=== PATIENT | female | born 1965 | race Caucasian/White ===

== ENCOUNTER 2017-02-18 09:21 | Emergency (ER) | payer BC, OTHER ==
[2017-02-18] MEDS ORDERED: Ketorolac INJ* 60 MG/2 ML VIAL IM ONE (10:46)
--- NOTE | 2017-02-18 10:59 | UC ---
Mis Casillas [place], scribed for Fernanda Mahajan MD on 02/18/17 at 1024 . Neck Pain HPI - HPI Summary HPI Summary: Patient is a 51 y/o F who presents to the with 10/10 pain in the back of her neck (behind ears, worse on right side) since early yesterday (progressively worse throughout the day). She reports tenderness to touch and a feeling of swelling in her throat when swallowing, but denies fever, tingling or numbness down arms, a headache, balance loss, sore throat, or change in ambulation. She states that she has a hx of allergies, but not recently. She reports taking Ibuprofen at 0330 today and one earlier. Pt states that she had bronchitis in December 2015. She denies a hx of stiff necks, but states she drove 5-6 hours the day before. Patients medication reviewed this visit. - History of Current Complaint Chief Complaint: UCGeneralIllness Stated Complaint: NECK PAIN Time Seen by Provider: 02/18/17 10:04 Hx Obtained From: Patient Onset/Duration Of Injury/Symptoms: Days Mechanism Of Injury: No Known Trauma Timing: Constant Onset/Duration: Gradual Onset, Lasting Days, Still Present Severity: Moderate Pain Intensity: 10 Pain Scale Used: 0-10 Numeric Location: Diffuse - Back of neck, worse on right side behind ear. Aggravating Factors: Position, Movement Alleviating Factors: OTC Meds Associated Signs & Symptoms: Positive: Swelling - when swallowing.. Negative: Headache - Allergies/Home Medications Allergies/Adverse Reactions: Allergies Allergy/AdvReac Type Severity Reaction Status Date / Time ELASTIC Allergy See Comment Uncoded 02/18/17 09:27 Home Medications: Home Medications Ibuprofen TAB* [Advil TAB*] 3 tab PO PRN 02/18/17 [History] PMH/Surg Hx/FS Hx/Imm Hx - Additional Past Medical History Additional PMH: overweight Previously Healthy: Yes - Surgical History Surgical History: Yes Surgery Procedure, Year, and Place: Hysterectomy, High Cholesterol - Family History Known Family History: Positive: Hypertension, Other - Gastroparesis - mother. 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 Alcohol Use: Rare Substance Use Type: None Smoking Status (MU): Never Smoked Tobacco Review Of Systems Constitutional: Positive: Negative. Negative: Fever ENT: Positive: Other - Feeling of swelling in her throat when swallowing. No sore throat. Musculoskeletal: Positive: Other: - Neck pain (behind ears, worse on right side) : tenderness to touch. Neurological: Positive: Negative - No tingling or numbness down arms, a headache , balance loss, or change in ambulation. All Other Systems Reviewed And Are Negative: Yes Physical Exam Triage Information Reviewed: Yes Appearance: Well-Appearing, Pain Distress - moderate., Obese Vital Signs: Initial Vital Signs Temp 98.0 F 02/18/17 09:25 Pulse 78 02/18/17 09:25 Resp 16 02/18/17 09:25 BP 140/72 02/18/17 09:25 Pulse Ox 100 02/18/17 09:25 Elevated BP noted. Vital Signs Reviewed: Yes Eyes: Positive: Conjunctiva Clear ENT: Positive: Pharynx normal - normal soft palate excursion, normal tonsils, normal posterior pharynx. Neck: Positive: No Lymphadenopathy - no palpable nodes in posterior cervical or occipital chains, Tenderness @ - right paraspinal muscles and insertion at occipute., Other: - cervical flexion to 10 degrees, rotation to right to 10 degrees, to left to 20 degrees, lateral bending markedly restricted. Palpable spasm in paraspinals Respiratory: Positive: Lungs clear, Normal breath sounds Cardiovascular: Positive: RRR, No Murmur Neurological Exam: Normal Neurological: Positive: Alert, Muscle Tone Normal - no pronator drift. Normal muscle tone in arms. Neck Pain Course/Dx - Course Course Of Treatment: nsaid's and muscle relaxants, referral to PT - Differential Dx/Diagnosis Provider Diagnoses: severe cervical muscle spasm Discharge - Discharge Plan Condition: Stable Disposition: HOME Prescriptions: Cyclobenzaprine TAB* [Flexeril 10 MG TAB*] 10 mg PO TID PRN #30 tab PRN Reason: Spasms - Neck Naproxen 500 mg PO BID PRN #30 tab PRN Reason: Pain Patient Education Materials: Spasmodic Torticollis (ED) Forms: *Work Release Referrals: Nahun Kulkarni MD [Primary Care Provider] - Additional Instructions: Your blood pressure was elevated today (140/72). Please, follow up with your primary care provider within the next few weeks. You were given a toradol injection today for control of pain. Once your are home, you can begin use of muscle relaxant. This will be sedating , and you should not drivie while taking it. After a day or so, it might be most helpful to use it only at night. Use naproxen as an anti-inflammatory, stopping if you begin to develop stomach upset with it. You have a referral for physical therapy should the neck spasm not relieve in several days. The documentation as recorded by the Mis jennings Salem accurately reflects the service I personally performed and the decisions made by me, Fernanda Mahajan MD.
[2017-02-18 11:27] VITALS: BP 140/85
== END 2017-02-18 11:27 | disposition home or self-care (01) ==
LOC: UCEAST 09:21
DX: M62.838 Other muscle spasm (principal); Z79.1 Long term (current) use of non-steroidal anti-inflammatories (NSAID)
CPT/HCPCS: 96372; 99212; G0463; J1885

== ENCOUNTER 2017-02-20 17:43 | Emergency (ER) | payer OTHER ==
[2017-02-20 17:47] VITALS: BP 143/81
[2017-02-20] MEDS ORDERED: HYDROcodone/ACETAMIN 5-325 MG* 1 TAB PO ONE (18:19)
--- NOTE | 2017-03-05 19:57 | UC ---
Neck Pain HPI - HPI Summary HPI Summary: Seen a couple days ago and dx with neck spasms---rx with flexeril and NSAID--- was getting better now getting worse again - History of Current Complaint Chief Complaint: UCUpperExtremity Stated Complaint: NECK PAIN AND SPASMS Time Seen by Provider: 02/20/17 18:07 Hx Obtained From: Patient ?: No Onset/Duration Of Injury/Symptoms: Days Mechanism Of Injury: No Known Trauma Timing: Constant Onset/Duration: Gradual Onset Severity: Moderate Pain Intensity: 8 Pain Scale Used: 0-10 Numeric Location: Discrete At: Character: Aching, Stiff, Spasmotic Aggravating Factors: Nothing Alleviating Factors: Other: - RX meds Associated Signs & Symptoms: Positive: Negative - Allergies/Home Medications Allergies/Adverse Reactions: Allergies Allergy/AdvReac Type Severity Reaction Status Date / Time ELASTIC Allergy See Comment Uncoded 02/20/17 17:59 PMH/Surg Hx/FS Hx/Imm Hx Previously Healthy: No Endocrine History: Dyslipidemia - Surgical History Surgical History: Yes Surgery Procedure, Year, and Place: Hysterectomy, High Cholesterol - Family History Known Family History: Positive: Hypertension, Other - Gastroparesis - mother. Negative: Cardiac Disease, Diabetes - Social History Occupation: Employed Full-time Lives: With Family Alcohol Use: Rare Substance Use Type: None Smoking Status (MU): Never Smoked Tobacco Review Of Systems Constitutional: Positive: Negative Skin: Positive: Negative Eyes: Positive: Negative ENT: Positive: Negative Respiratory: Positive: Negative Cardiovascular: Positive: Negative Gastrointestinal: Positive: Negative Genitourinary: Positive: Negative Musculoskeletal: Positive: Myalgia Neurological: Positive: Negative Psychological: Positive: Negative All Other Systems Reviewed And Are Negative: Yes Physical Exam Triage Information Reviewed: Yes Appearance: Well-Appearing, Well-Nourished, Pain Distress Vital Signs: Initial Vital Signs Temp 98.3 F 02/20/17 17:44 Pulse 97 02/20/17 17:44 Resp 18 02/20/17 17:44 BP 143/81 02/20/17 17:44 Pulse Ox 99 02/20/17 17:44 Vital Signs Reviewed: Yes Eye Exam: Normal Eyes: Positive: Conjunctiva Clear ENT Exam: Normal ENT: Positive: Normal ENT inspection, Hearing grossly normal, Pharynx normal, TMs normal. Negative: Nasal congestion, Nasal drainage, Tonsillar swelling, Tonsillar exudate, Trismus, Muffled/hoarse voice Dental Exam: Normal Neck exam: Normal Neck: Positive: Supple, Tenderness @ - muscle spasms. Negative: Nuchal Rigidity , Enlarged Nodes @ Respiratory Exam: Normal Respiratory: Positive: Chest non-tender, Lungs clear, Normal breath sounds, No respiratory distress, No accessory muscle use Cardiovascular Exam: Normal Cardiovascular: Positive: RRR, No Murmur, Pulses Normal, Brisk Capillary Refill Musculoskeletal Exam: Normal Musculoskeletal: Positive: Strength Intact, ROM Intact, No Edema Neurological Exam: Normal Neurological: Positive: Alert, Muscle Tone Normal Psychological Exam: Normal Skin Exam: Normal Neck Pain Course/Dx - Course Course Of Treatment: continue 1 Nsaid d/c the other (pts choice) continue flexeril and hydrocodone follow with pcp, add work limits - Differential Dx/Diagnosis Differential Dx/HQI/PQRI: Arthritis, Sprain, Strain, Trauma Provider Diagnoses: Cervical Muscle strain, High BP without dx of hypertension Discharge - Discharge Plan Condition: Stable Disposition: HOME Prescriptions: HYDROcodone/ACETAMIN 5-325 MG* [[place] 5-325 TAB*] 1 tab PO Q6H PRN #15 tab MDD 4 PRN Reason: pain Patient Education Materials: Cervical Strain (ED), Spasmodic Torticollis (ED) Forms: *Work Release Referrals: Nahun Kulkarni MD [Primary Care Provider] - 3 Days
== END 2017-02-20 18:36 | disposition home or self-care (01) ==
LOC: UCEAST 17:43
DX: S16.1XXA Strain of muscle, fascia and tendon at neck level, initial encounter (principal); X58.XXXA Exposure to other specified factors, initial encounter; Y93.9 Activity, unspecified; Y92.9 Unspecified place or not applicable; R03.0 Elevated blood-pressure reading, without diagnosis of hypertension; E78.5 Hyperlipidemia, unspecified
CPT/HCPCS: 99212; G0463

== ENCOUNTER 2017-03-13 11:09 | Emergency (ER) | payer OTHER ==
[2017-03-13 11:28] VITALS: BP 127/84
--- NOTE | 2017-03-13 12:26 | UC ---
Throat Pain/Nasal Yevgeniy HPI - History of Current Complaint Hx Obtained From: Patient ?: No Onset/Duration: Gradual Onset - started yesterday am with ST Severity: Worse Since: - today Associated Signs & Symptoms: Positive: Fever - feels feverish <Caroline Farfan - Last Filed: 03/13/17 12:52> <Elena Torres - Last Filed: 03/13/17 13:11> - History of Current Complaint Chief Complaint: UCRespiratory Stated Complaint: SORE THROAT Time Seen by Provider: 03/13/17 12:03 - Allergies/Home Medications Allergies/Adverse Reactions: Allergies Allergy/AdvReac Type Severity Reaction Status Date / Time ELASTIC Allergy See Comment Uncoded 02/20/17 17:59 Home Medications: Home Medications Ibuprofen TAB* 1 tab PO TID PRN 03/13/17 [History Confirmed 03/13/17] Miralax* 1 pow PO DAILY 03/13/17 [History Confirmed 03/13/17] Prozac CAP* 1 tab PO DAILY 03/13/17 [History Confirmed 03/13/17] PMH/Surg Hx/FS Hx/Imm Hx Previously Healthy: Yes Psychological History: Anxiety, Depression - Surgical History Surgical History: Yes Surgery Procedure, Year, and Place: Hysterectomy, High Cholesterol. ANXIETY - Family History Known Family History: Positive: Hypertension, Other - Gastroparesis - mother. Negative: Cardiac Disease, Diabetes - Social History Occupation: Employed Part-time Lives: With Family Alcohol Use: Rare Substance Use Type: None Smoking Status (MU): Never Smoked Tobacco <Caroline Farfan - Last Filed: 03/13/17 12:52> Review of Systems Constitutional: Fever, Fatigue ENT: Sore Throat All Other Systems Reviewed And Are Negative: Yes <Caroline Farfan - Last Filed: 03/13/17 12:52> Physical Exam Triage Information Reviewed: Yes Appearance: Well-Appearing, No Pain Distress, Well-Nourished Vital Signs: Initial Vital Signs Temp 97.7 F 03/13/17 11:21 Pulse 101 03/13/17 11:21 Resp 16 03/13/17 11:21 BP 127/84 03/13/17 11:21 Pulse Ox 98 03/13/17 11:21 Vital Signs Reviewed: Yes ENT: Positive: Pharyngeal erythema, TMs normal, Tonsillar exudate - L side Neck: Positive: No Lymphadenopathy Respiratory Exam: Normal Cardiovascular Exam: Normal Psychological Exam: Normal Skin Exam: Normal Skin: Negative: rashes <Caroline Farfan - Last Filed: 03/13/17 12:52> Vital Signs: Initial Vital Signs Temp 97.7 F 03/13/17 11:21 Pulse 101 03/13/17 11:21 Resp 16 03/13/17 11:21 BP 127/84 03/13/17 11:21 Pulse Ox 98 03/13/17 11:21 <Elena Torres - Last Filed: 03/13/17 13:11> Throat Pain/Nasal Course/Dx - Differential Dx/Diagnosis Differential Diagnosis/HQI/PQRI: Sinusitis, Tonsillitis, URI Provider Diagnoses: sore throat-strep neg <Caroline Farfan - Last Filed: 03/13/17 12:52> Discharge <Caroline Farfan - Last Filed: 03/13/17 12:52> <Elena Torres - Last Filed: 03/13/17 13:11> - Discharge Plan Condition: Stable Disposition: HOME Patient Education Materials: Tonsillitis (ED) Referrals: Nahun Kulkarni MD [Primary Care Provider] - 2 Days (if no better) Additional Instructions: drink plenty of fluids use ibuprofen for pain and fever Attestation Statement User Type: Provider - I was available for consult. This patient was seen by the SAUL. The patient was not presented to, seen by, or examined by me. -Leatha <Elena Torres - Last Filed: 03/13/17 13:11>
== END 2017-03-13 13:06 | disposition home or self-care (01) ==
LOC: UCEAST 11:09
DX: J02.9 Acute pharyngitis, unspecified (principal); R50.9 Fever, unspecified; F41.9 Anxiety disorder, unspecified; F32.9 Major depressive disorder, single episode, unspecified; Z90.710 Acquired absence of both cervix and uterus
CPT/HCPCS: 87651; 99211; G0463

== ENCOUNTER 2019-08-28 14:05 | Emergency (ER) | payer BC, OTHER ==
[2019-08-28 14:33] VITALS: BP 139/98
--- NOTE | 2019-08-28 14:56 | UC ---
Abdominal Pain Female HPI - HPI Summary HPI Summary: Patient is a 53yo female presenting with LLQ pain x2 days that she states is "similar to her diverticulitis flares." Notes stools are "always hard" but that she is experiencing LLQ pain and cramping with BMs this morning. Denies pain at rest but notes increased pain with movement at times. Denies radiating pain. Notes she is urinating more frequently because "having a bergeron bladder irritates the bowels." Denies urinary symptoms. Denies blood in the stool. Denies n/v/d. Denies decreased appetite and fluid intake. Denies fever and chills. States last flare was ~2 years ago. - History of Current Complaint Chief Complaint: UCAbdominalPain Stated Complaint: ABD PAIN Hx Obtained From: Patient Onset/Duration: Gradual Onset, Lasting Days Severity Initially: Mild Severity Currently: Moderate Pain Intensity: 6 Pain Scale Used: 0-10 Numeric Allergies/Adverse Reactions: Allergies Allergy/AdvReac Type Severity Reaction Status Date / Time ELASTIC Allergy See Comment Uncoded 08/28/19 14:27 Home Medications: Home Medications Docusate CAP* [Colace Cap*] 100 mg PO DAILY 08/28/19 [History Confirmed 08/28/19 ] Phentermine HCl 37.5 mg PO DAILY 08/28/19 [History Confirmed 08/28/19] Psyllium FREIDA* [Metamucil FREIDA*] 1 pkt PO DAILY 08/28/19 [History Confirmed ] PMH/Surg Hx/FS Hx/Imm Hx Previously Healthy: Yes GI/ History: Diverticulitis - Surgical History Surgical History: Yes Surgery Procedure, Year, and Place: Hysterectomy - Family History Known Family History: Positive: Hypertension, Other - Gastroparesis - mother. Negative: Cardiac Disease, Diabetes - Social History Alcohol Use: Occasionally Substance Use Type: None Smoking Status (MU): Never Smoked Tobacco Review of Systems All Other Systems Reviewed And Are Negative: Yes Constitutional: Positive: Negative. Negative: Fever, Chills Respiratory: Positive: Negative Cardiovascular: Positive: Negative Gastrointestinal: Positive: Abdominal Pain - LLQ. Negative: Vomiting, Diarrhea , Nausea Genitourinary: Positive: Negative Musculoskeletal: Positive: Negative Physical Exam Triage Information Reviewed: Yes Appearance: Well-Appearing, No Pain Distress, Well-Nourished Vital Signs: Initial Vital Signs Temp 97.9 F 1209/19 14:25 Pulse 96 08/28/19 14:25 Resp 16 08/28/19 14:25 BP 139/98 08/28/19 14:25 Pulse Ox 99 08/28/19 14:25 Lab Results 08/28/19 Range/Units 14:56 POC Urine Color Yellow POC Urine Clarity Clear POC Urine pH 6.5 (5-9) POC Ur Specif [place] 1.010 (1.010-1.030) POC Urine Protein Negative (Negative) POC Ur Glucose (UA) Negative (Negative) POC Urine Ketones Negative (Negative) POC Urine Blood Negative (Negative) POC Urine Nitrite Negative (Negative) POC Urine Bilirubin Negative (Negative) POC Urine Urobilinogen 0.2 (Negative) POC U Leukocyte Esteras Negative (Negative) Vital Signs Reviewed: Yes Eyes: Positive: Conjunctiva Clear ENT: Positive: Hearing grossly normal Neck: Positive: Supple Respiratory Exam: Normal Respiratory: Positive: Lungs clear, Normal breath sounds, No respiratory distress Cardiovascular Exam: Normal Cardiovascular: Positive: RRR Abdomen Description: Positive: No Organomegaly, Soft, Other: - LLQ tenderness to palpation. Negative: CVA Tenderness (R), CVA Tenderness (L), Distended, Guarding, McBurney's Point Tenderness Bowel Sounds: Positive: Present Neurological: Positive: Alert Psychological: Positive: Age Appropriate Behavior Skin Exam: Normal - no erythema and ecchymosis Abd Pain Female Course/Dx - Course Course Of Treatment: UA negative. I treated patient with Augmentin for diverticulitis flare. Instructed to continue with soft food diet that she stated helps during flares along with increasing fluids. Instructed to follow up with PCP within the next few days for reevaluation and to go to ED with new or worsening symptoms. Patient voiced understanding and agreed with treatment plan. - Differential Dx/Diagnosis Differential Diagnosis: Constipation, Diverticulitis, Irritable Bowel Syndrome Provider Diagnosis: Acute diverticulitis Discharge ED - Sign-Out/Discharge Documenting (check all that apply): Patient Departure All imaging exams completed and their final reports reviewed: No Studies - Discharge Plan Condition: Stable Disposition: HOME Prescriptions: Amoxicillin/Clavulanate TAB* [Augmentin TAB 875*] 875 mg PO TID #30 tab Patient Education Materials: Diverticulitis (ED) Referrals: Nahun Kulkarni MD [Primary Care Provider] - If Needed Additional Instructions: Take Augmentin as prescribed for treatment of your diverticulitis flare. You may take over the counter pain medications as directed for pain relief. Yo may continue with soft foods and increase your fluid intake. Follow up with your PCP within the next 3 days for reevaluation of your symptoms. Go to the emergency room with any new or worsening symptoms. - Billing Disposition and Condition Condition: STABLE Disposition: Home
== END 2019-08-28 15:24 | disposition home or self-care (01) ==
LOC: UCCORT 14:05
DX: K57.92 Diverticulitis of intestine, part unspecified, without perforation or abscess without bleeding (principal); Z91.09 Other allergy status, other than to drugs and biological substances
CPT/HCPCS: 81003; 99212; G0463

== ENCOUNTER 2019-12-02 07:07 | Emergency (ER) | payer BC ==
--- OUTSIDE RECORDS SUMMARY | 2019-12-02 07:15 | XMS REPORT | Summary of Care ---
:1965 Author Organization [facility] Address [address] [facility] [place] [address] Care Team Providers Name Role Phone Nahun Kulkarni Primary Care Provider Reason for Visit Reason Comments Sick cough, fatigue (sleeping non stop since yesterday), L shoulder (back side ) she can feel it across the back of her neck. started yesterday and has progressed from there. Encounter Details Date Type Department Care Team Description 11/21/2019 Office Visit [place] [facility] Garrett Coyne, Malaise and fatigue (Primary Dx); Medicine PA Viral URI with cough [address] [place] [address] [place] [address] [phone] Allergies Active Allergy Reactions Severity Noted Date Comments Tape: Silk Or Adhesive Dermatologic Reaction 02/23/2014 documented as of this encounter (statuses as of 11/21/2019) Medications Medication Sig Dispensed Refills Start Date End Date Status Polyethylene Glycol Take by mouth. 0 Active 3350 (MIRALAX PO) docusate sodium Take 100 mg by 0 Active (COLACE) 100 MG Oral mouth DAILY. Cap Phentermine HCl 30 MG Take 1 Cap by 30 Cap 5 09/26/2019 Active Oral Cap mouth DAILY. Max Daily Amount: 30 mg. Psyllium (METAMUCIL Take 43 % by 0 Active FREE & NATURAL) 43 % mouth NEEDED. Oral Powder Prasterone (INTRAROSA) Place 6.5 % into 0 Active 6.5 MG Vaginal INSERT the vagina DAILY. Benzonatate 200 MG Oral Take 1 Cap by 42 Cap 0 11/21/2019 Active CapIndications: Viral mouth THREE TIMES URI with cough DAILY NEEDED (Cough). guaifenesin (MUCINEX) Take 1 Tab by 28 Tab 0 11/21/2019 Active 600 MG Oral TABLET SR mouth EVERY 12 HRIndications: Viral TWELVE HOURS. URI with cough documented as of this encounter (statuses as of 11/21/2019) Active Problems Problem Noted Date Irritable bowel syndrome without diarrhea 02/19/2016 BMI 31.0-31.9,adult 02/19/2016 Mixed hyperlipidemia 07/04/2015 Pre-diabetes 07/04/2015 Depression with anxiety 07/04/2015 Overview: [facility] Lara Lopez documented as of this encounter (statuses as of 11/21/2019) Immunizations Name Administration Dates Next Due Influenza (IM) Preservative Free 05/13/2018, 09/01/2017, 07/04/2015 ZOSTER (SHINGRIX) VACCINE 07/21/2018, 04/20/2018 documented as of this encounter Social History Tobacco Use Types Packs/Day Years Used Date Never Smoker Smokeless Tobacco: Never Used Alcohol Use Drinks/Week oz/Week Comments No 0 Standard drinks or equivalent 0.0 Sex Assigned at Date Recorded Not on file documented as of this encounter Last Filed Vital Signs Vital Sign Reading Time Taken Comments Blood Pressure 136/62 11/21/2019 3:14 PM EST Pulse 104 11/21/2019 3:14 PM EST Temperature 37.1 11/21/2019 3:14 PM EST C (98.7 F) Respiratory Rate - - Oxygen Saturation 97% 11/21/2019 3:14 PM EST Inhaled Oxygen Concentration - - Weight 78.5 kg (173 lb) 11/21/2019 3:14 PM EST Height 157.5 cm (5' 2") 11/21/2019 3:14 PM EST Body Mass Index 31.64 11/21/2019 3:14 PM EST documented in this encounter Progress Notes Garrett Coyne PA - 11/21/2019 3:20 PM EST PATIENT: Rosalba Desir : 1965 DATE OF SERVICE: 11/21/2019 Subjective SUBJECTIVE: Rosalba Desir is a 54-y.o. female here for evaluation of nonproductive cough and post nasal drip. Onset of symptoms was a few days ago, gradually worsening since that time. The cough is non-productive and is aggravated by unkown. Patient does not have a history of asthma. Patient does not have a history of environmental allergens. Patient does not have recent travel. Patient does not have a history of smoking. Patient does not have a history of reflux. Patient does not have previous chest x-ray. Patient has not had a PPD done. Past Medical History: Diagnosis Date ? Anemia ? Anxiety ? Atypical migraine ? Depression ? Diabetes mellitus (HCC) boarderline type 2 ? Diverticulitis ? Eczema ? Hemoglobin A1C between 7% and 9% indicating borderline diabetic control ? High cholesterol ? Hyperlipemia ? Hypothyroid Family History Problem Relation Age of Onset ? Eczema Mother ? Diabetes Mother type 2 ? High Cholesterol Mother ? Hypertension Mother ? Thyroid Mother ? Asthma Brother ? GI Father polyps ? High Cholesterol Father ? Hypertension Father ? Allergies Son cats dogs wheat Grass Current Outpatient Medications Medication Sig ? Benzonatate 200 MG Oral Cap Take 1 Cap by mouth THREE TIMES DAILY NEEDED (Cough). ? docusate sodium (COLACE) 100 MG Oral Cap Take 100 mg by mouth DAILY. ? guaifenesin (MUCINEX) 600 MG Oral TABLET SR 12 HR Take 1 Tab by mouth EVERY TWELVE HOURS. ? Phentermine HCl 30 MG Oral Cap Take 1 Cap by mouth DAILY. Max Daily Amount: 30 mg. ? Polyethylene Glycol 3350 (MIRALAX PO) Take by mouth. ? Prasterone (INTRAROSA) 6.[address] 6.5 % into the vagina DAILY. ? Psyllium (METAMUCIL FREE & NATURAL) 43 % Oral Powder Take 43 % by mouth NEEDED. No current facility-administered medications for this visit. Allergies Allergen Reactions ? Adhesive [Tape: Silk Or Adhesive] Dermatologic Reaction Social History Socioeconomic History ? Marital status: Single Spouse name: Not on file ? Number of children: Not on file ? Years of education: Not on file ? Highest education level: Not on file Occupational History ? Not on file Social Needs ? Financial resource strain: Not on file ? Food insecurity Worry: Not on file Inability: Not on file ? Transportation needs Medical: Not on file Non-medical: Not on file Tobacco Use ? Smoking status: Never Smoker ? Smokeless tobacco: Never Used Substance and Sexual Activity ? Alcohol use: No Alcohol/week: 0.0 standard drinks ? Drug use: No ? Sexual activity: Not Currently Lifestyle ? Physical activity Days per week: Not on file Minutes per session: Not on file ? Stress: Not on file Relationships ? Social connections Talks on phone: Not on file Gets together: Not on file Attends anglican service: Not on file Active member of club or organization: Not on file Attends meetings of clubs or organizations: Not on file Relationship status: Not on file ? Intimate partner violence Fear of current or ex partner: Not on file Emotionally abused: Not on file Physically abused: Not on file Forced sexual activity: Not on file Other Topics Concern ? Back Care Not Asked ? Bike Helmet Not Asked ? Blood Transfusions Not Asked ? Caffeine Concern No ? Exercise Yes Comment: yoga class ? Hobby Hazards Not Asked ? International Travel Not Asked ? Service Not Asked ? Occupational Exposure Not Asked ? Seat Belt Not Asked ? Self-Exams Not Asked ? Sleep Concern Not Asked ? Special Diet No ? Stress Concern Not Asked ? Weight Concern Yes Comment: would like to weigh 20-30 lbs less detention goal is 150 Social History Narrative Lives in [place], [place] with son and has grown daughter . 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 HENT: Negative for ear pain, hearing loss and tinnitus. Eyes: Negative for blurred vision and double vision. Respiratory: Positive for cough. Negative for sputum production, shortness of breath and wheezing. Cardiovascular: Negative for chest pain, palpitations and leg swelling. Gastrointestinal: Negative for diarrhea, heartburn, nausea and vomiting. Musculoskeletal: Negative for myalgias and neck pain. Neurological: Negative for dizziness, weakness and headaches. Objective OBJECTIVE: BP 136/62 (BP Location: Left arm, Patient Position: Sitting) | Pulse 104 | Temp 98.7 F (37.1 C) (Tympanic) | Ht 5' 2" (1.575 m) | Wt 173 lb ( 78.5 kg) | SpO2 97% | BMI 31.64 kg/m GENERAL: alert, cooperative, no distress. CYANOSIS: absent. HEENT: ears, nose, throat exam normal, no neck nodes or sinus tenderness. LUNGS: clear to auscultation bilaterally. HEART: regular rate and rhythm, S1, S2 normal, no murmur, click, rub or gallop. ABDOMEN: soft, non-tender. Bowel sounds normal. No masses, no organomegaly. EXTREMITIES: extremities normal, atraumatic, no cyanosis or edema. NEUROLOGICAL: alert, oriented times three, no defects noted in general exam. ASSESSMENT: ICD-9-CM ICD-10-CM 1. Malaise and fatigue 780.79 R53.81 FLU A/FLU B/RSV PCR ASSAY (TESTED AT [facility] ONLY) R53.83 FLU A/FLU B/RSV PCR ASSAY (TESTED AT [facility] ONLY) 2. Viral URI with cough 465.9 J06.9 Benzonatate 200 MG Oral Cap B97.89 guaifenesin (MUCINEX) 600 MG Oral TABLET SR 12 HR Plan PLAN: 1. Medications per orders. 2. Call if shortness of breath worsens, blood in sputum, change in character of cough, development of fever or chills, inability to maintain nutrition and hydration. Avoid exposure to tobacco smoke, fumes. 3. Follow-up visit as needed. Author: HEMANT Hines 11/21/2019 15:36 documented in this encounter Plan of Treatment Date Type Specialty Care Team Description 01/25/2020 Office Visit Internal Medicine Nahun Kulkarni MD [address] [place] [address] [phone] Name Type Priority Associated Diagnoses Date/Time FLU A/FLU B/RSV PCR ASSAY Lab Routine Malaise and fatigue 11/21/2019 3:37 PM EST (TESTED AT [facility] ONLY) Name Type Priority Associated Diagnoses Order Schedule FLU A/FLU B/RSV PCR Lab Routine Malaise and fatigue 1 Occurrences starting ASSAY (TESTED AT [facility] 11/21/2019 until 05/19/2020 LAB ONLY) Health Maintenance Due Date Last Done Comments DTaP/Tdap/Td Vaccines (1 - 1977 Tdap) HIV SCREENING 1981 INFLUENZA VACCINE (#1) 2019 05/13/2018, 09/01/2017, 07/04/2015 DIABETES SCREENING 01/14/2020 01/13/2019, 01/13/2019, 06/01/2018, Additional history exists MAMMOGRAM (SCREENING) 09/28/2020 09/28/2019, 09/28/2019, 09/14/2018, Additional history exists DEPRESSION SCREENING 11/20/2020 02/07/2018 Postponed from 02/07/2019 (Patient refused) LIPID DISORDER SCREENING 01/14/2024 01/13/2019, 06/01/2018, 08/27/2015, Additional history exists Colonoscopy 09/30/2027 09/30/2017, 09/30/2016 ZOSTER IMMUNIZATION SERIES Completed 07/21/2018, 04/20/2018 HEPATITIS A IMMUNIZATION Aged Out No longer eligible SERIES based on patient's age to complete this topic HPV IMMUNIZATION SERIES Aged Out No longer eligible based on patient's age to complete this topic MENINGOCOCCAL VACCINE IMM Aged Out No longer eligible based on patient's age to complete this topic PNEUMOCOCCAL 0-64 YRS Aged Out No longer eligible based on patient's age to complete this topic documented as of this encounter Goals Goal Patient Goal Associated Recent Patient-Stated? Author Type Problems Progress Depression Depression No Cayla, screen (PHQ-9) Nahun Stoll, total score < 5 Note: This is an individualized treatment (depression) goal for Rosalba Desir: Displayed above is your goal for a depression screening (PHQ-9) score that would indicate good control of your depression. Keep a regular sleep schedule Lifestyle Nahun Milligan MD Note: This is an individualized lifestyle goal for Rosalba Desir: Please maintain a regular sleep schedule. This may help with some symptoms of depression. Take all prescribed medications as Self-management Nahun Milligan MD directed Note: This is an individualized self-management goal for Rosalba Desir: Please take all prescribed medications as directed. 1. Do not skip doses. If you cannot afford your medications, talk with your doctor. 2. Use a pill reminder system such as a pill box if needed. Your pharmacist can help you with this. 3. Contact your Pharmacy 5 days before your medication runs out. If you cannot take your medications for any reasons, talk with your doctor. 4. Please bring all of your medication bottles and inhalers (or a list of all your medications/inhalers) with you to every visit. Potential barriers to meeting all of your care plan goals will continue to be addressed on an ongoing basis. 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
--- OUTSIDE RECORDS SUMMARY | 2019-12-02 07:15 | XMS REPORT | Summary of Care ---
:1965 Author Organization [facility] Address [address] [facility] [place] [address] Care Team Providers Name Role Phone CaylaNahun Primary Care Provider Reason for Visit Reason Comments Sick was diagnosed with flu last week, felt better over the weekend, now she is having cough, congestion, this AM she had a fever Encounter Details Date Type Department Care Team Description 11/28/2019 Office Visit [place] [facility] Garrett Coyne, Influenza A ( Primary Dx); Medicine [place] Nasal congestion [address] [place] [address] [place] [address] [phone] Allergies Active Allergy Reactions Severity Noted Date Comments Tape: Silk Or Adhesive Dermatologic Reaction 02/23/2014 documented as of this encounter (statuses as of 11/28/2019) Medications Medication Sig Dispensed Refills Start Date [...] HRIndications: Viral TWELVE HOURS. URI with cough oseltamivir (TAMIFLU) Take 1 Cap by 10 Cap 0 11/22/2019 Active 75 MG Oral mouth TWICE CapIndications: DAILY. Influenza A fluticasone (FLONASE) Cougar 2 Sprays in 1 Bottle 0 11/28/2019 Active 50 MCG/ACT Nasal nose DAILY. SuspensionIndications: Nasal congestion documented as of this encounter (statuses as of 11/28/2019) Active Problems Problem Noted Date Irritable bowel syndrome without diarrhea 02/19/2016 BMI 31.0-31.9,adult 02/19/2016 Mixed hyperlipidemia 07/04/2015 Pre-diabetes 07/04/2015 Depression with anxiety 07/04/2015 Overview: [facility] Lraa Lopez documented as of this encounter (statuses as of 11/28/2019) Immunizations Name Administration Dates Next Due Influenza [...] Sign Reading Time Taken Comments Blood Pressure 132/90 11/28/2019 1:05 PM EDT Pulse 84 11/28/2019 1:05 PM EDT Temperature 37.1 11/28/2019 1:05 PM EDT C (98.7 F) Respiratory Rate - - Oxygen Saturation 97% 11/28/2019 1:05 PM EDT Inhaled Oxygen Concentration - - Weight 78 kg (172 lb) 11/28/2019 1:05 PM EDT Height 157.5 cm (5' 2") 11/28/2019 1:05 PM EDT Body Mass Index 31.46 11/28/2019 1:05 PM EDT documented in this encounter Progress Notes Garrett Coyne, PA - 11/28/2019 1:00 PM EDT PATIENT: Rosalba Desir : 1965 DATE OF SERVICE: 11/28/2019 Subjective SUBJECTIVE: Rosalba Desir is a 54-y.o. female here for evaluation of nonproductive cough and post nasal drip. Onset of symptoms was last week, gradually worsening since that time. The cough [...] Patient has not had a PPD done. The patient was tested positive with influenza A, and was subsequently prescribed Tamiflu. Since then she has completed the course of Tamiflu without significant improvement. She attempted to go back to work this week, but as she increased her activity she felt as bad as she had when she initially sawme and subsequently went. Past Medical History: Diagnosis Date ? Anemia [...] Take 100 mg by mouth DAILY. ? fluticasone (FLONASE) 50 MCG/ACT Nasal Suspension Cougar 2 Sprays in nose DAILY. ? guaifenesin (MUCINEX) 600 MG Oral TABLET SR 12 HR Take 1 Tab by mouth EVERY TWELVE HOURS. ? oseltamivir (TAMIFLU) 75 MG Oral Cap Take 1 Cap by mouth TWICE DAILY. ? Phentermine HCl 30 MG Oral Cap [...] file Gets together: Not on file Attends roman catholic service: Not on file Active member of [...] would like to weigh 20-30 lbs less assisted goal is 150 Social History Narrative Lives in [place], [place] with son and has grown daughter . 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 Objective OBJECTIVE: BP 132/90 (BP Location: Left arm, Patient Position: Sitting) | Pulse 84 | Temp 98.7 F (37.1 C) (Tympanic) | Ht 5' 2" (1.575 m) | Wt 172 lb (78 kg) | SpO2 97% | BMI 31.46 kg/m GENERAL: alert, cooperative,mild distress. CYANOSIS: absent. HEENT: ears, nose, throat [...] in general exam. ASSESSMENT: ICD-9-CM ICD-10-CM 1. Influenza A 487.1 J10.1 2. Nasal congestion 478.19 R09.81 fluticasone (FLONASE) 50 MCG/ACT Nasal Suspension Plan PLAN: 1. Medications per orders. 2. Reassured patient that this often takes time to reside, and recurrance of symptoms are relatively common. If she begins to develop a productive cough, worsening fever, malaise and fatigue Author: HEMANT Hines 11/28/2019 14:03 documented in this encounter Plan of Treatment Date Type Specialty Care Team Description 01/25/2020 Office Visit Internal Medicine Nahun Kulkarni MD [address] [place] [address] [phone] Health Maintenance Due Date Last Done Comments CT Colonography 1965 Colonoscopy 1965 Colorectal Cancer Screening 1965 FIT-DNA 1965 FIT/FOBT 1965 Sigmoidoscopy 1965 DTaP/Tdap/Td Vaccines (1 - 1977 Tdap) HIV [...] filedocumented in this encounter Visit Diagnoses Diagnosis Influenza A Influenza with other respiratory manifestations Nasal congestion Other diseases of nasal cavity and sinuses documented in this encounter Additional Health Concerns Infection Noted Time Resolved Time Influenza 11/21/2019 10:06 PM EST documented as of this encounter Guarantor Name Account Type Relation to Date of Phone Billing Patient Address Rosalba Desir Personal/Family 1965 [phone] [address] [address] [phone] [place], [place] (Work) [address] documented as of this encounter Advance Directives Type Date 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
[2019-12-02 07:36] VITALS: BP 144/94
--- NOTE | 2019-12-02 08:07 | UC ---
Respiratory Complaint HPI - HPI Summary HPI Summary: Pt had Flu A 2 weeks ago and started to feel better. approx 1 wk ago pt developed R eye inflammation, sinus congestion, coughing,ear aches,fevers. she did not measure fever. Pt states she has been taking Mucinex, Tessalon, Flonase, and alternating, Tylenol and Motrin. denies known exposures to covid or travel. - History of Current Complaint Chief Complaint: UCGeneralIllness Stated Complaint: CONGESTION, EAR COMPLAINT, EYE COMPLAINT Time Seen by Provider: 12/02/19 07:57 Hx Obtained From: Patient Pain Intensity: 3 Pain Scale Used: 0-10 Numeric Character: Cough: Nonproductive Aggravating Factors: Deep Breaths Alleviating Factors: Nothing Associated Signs And Symptoms: Positive: Fever, URI, Nasal Congestion. Negative : Hemoptysis, Dizziness - Allergies/Home Medications Allergies/Adverse Reactions: Allergies Allergy/AdvReac Type Severity Reaction Status Date / Time ELASTIC Allergy See Comment Uncoded 12/02/19 07:36 Home Medications: Home Medications Docusate CAP* [Colace Cap*] 100 mg PO DAILY 08/28/19 [History Confirmed 12/02/19 ] Psyllium FREIDA* [Metamucil FREIDA*] 1 pkt PO DAILY 08/28/19 [History Confirmed ] Azithromycin TAB* [Zithromax TAB (Z-FREIDA) 250 mg #6 tabs] 2 tab PO .TODAY, THEN 1 DAILY #1 freida 12/02/19 [Rx] Prasterone (Dhea) [Intrarosa] 6.5 mg [place] DAILY 12/02/19 [History Confirmed ] PMH/Surg Hx/FS Hx/Imm Hx - Additional Past Medical History Additional PMH: vaginal dryness Previously Healthy: Yes - Surgical History Surgical History: Yes Surgery Procedure, Year, and Place: Hysterectomy - Family History Known Family History: Positive: Hypertension, Other - Gastroparesis - mother. Negative: Cardiac Disease, Diabetes - Social History Alcohol Use: Occasionally Substance Use Type: None Smoking Status (MU): Never Smoked Tobacco Review of Systems All Other Systems Reviewed And Are Negative: Yes Constitutional: Positive: Fever, Fatigue. Negative: Chills Skin: Negative: Rash Eyes: Positive: Drainage - R EYE, Eye Redness - R EYE. Negative: Photophobia ENT: Positive: Ear Ache - R EAR, Nasal Discharge, Sinus Congestion. Negative: Sore Throat, Sinus Pain/Tenderness Respiratory: Positive: Cough. Negative: Shortness Of Breath, Other - WHEEZING, SOB Cardiovascular: Negative: Chest Pain Gastrointestinal: Negative: Vomiting, Diarrhea Neurological/Mental Status: Negative: Headache Physical Exam Triage Information Reviewed: Yes Appearance: Well-Appearing Vital Signs: Initial Vital Signs Temp 97.9 F 12/02/19 07:27 Pulse 93 12/02/19 07:27 Resp 16 12/02/19 07:27 BP 144/94 12/02/19 07:27 Pulse Ox 100 12/02/19 07:27 Vital Signs Reviewed: Yes Eyes: Positive: Conjunctiva Inflamed - R EYE ENT: Positive: Pharynx normal, TMs normal, Uvula midline Neck: Positive: Supple, Nontender, No Lymphadenopathy Respiratory: Positive: Lungs clear, Other: - COUGHING DURING VISIT Cardiovascular Exam: Normal Neurological: Positive: Alert Skin: Negative: Rashes Respiratory Course/Dx - Course Course Of Treatment: REcently dx'd/tx'd for Influenza A; she did get vaccine this year. Had 3 days of improvement then returned w/ fever, cough, sinus myra. and R eye inflammation. On exam there was coughing but no rales or other abnormal lung sounds. Leaning towards bronchitis and although I suggested this does not need antibx at this time, she wanted them. We disc efficacy of antibx for viral infections and side effects of meds. Vitals are good. rapid flu neg today. - Differential Dx/Diagnosis Differential Diagnosis/HQI/PQRI: Bronchitis, Influenza, Lower Resp Infection, SARS, Other Provider Diagnosis: Bronchitis, Viral conjunctivitis Discharge ED - Sign-Out/Discharge Documenting (check all that apply): Patient Departure All imaging exams completed and their final reports reviewed: No Studies - Discharge Plan Condition: Good Disposition: HOME Prescriptions: Azithromycin TAB* [Zithromax TAB (Z-FREIDA) 250 mg #6 tabs] 2 tab PO .TODAY, THEN 1 DAILY #1 freida Patient Education Materials: Viral Syndrome (ED) Referrals: Nahun Kulkarni MD [Primary Care Provider] - Additional Instructions: If you have trouble breathing please go to the emergency room. - Billing Disposition and Condition Condition: GOOD Disposition: Home
[2019-12-02 08:39] LABS: Influenza A Molecular Negative (Negative); Influenza B Molecular Negative (Negative)
== END 2019-12-02 08:49 | disposition home or self-care (01) ==
LOC: UCCORT 07:07
DX: J40 Bronchitis, not specified as acute or chronic (principal); B30.9 Viral conjunctivitis, unspecified; Z91.09 Other allergy status, other than to drugs and biological substances; R53.83 Other fatigue
CPT/HCPCS: 99212; G0463